=== PATIENT | male | born 1940 | race Hispanic/Latino ===

== ENCOUNTER 2021-09-02 08:47 | Emergency (ER) | payer MEDICARE ==
[~2021-09-02] VITALS: Ht 154.9 cm; Wt 74.8 kg
[2021-09-02 11:00] VITALS: BP 137/63
[2021-09-02] MEDS ORDERED: NORVASC5 M1 PO (11:02)
[2021-09-02] MEDS ORDERED: ARICEPT PO (11:03)
[2021-09-02] MEDS ORDERED: FLUTICASON50 MCG/ACT (11:05)
[2021-09-02] MEDS ORDERED: METFORMIN500 M2 PO (11:06)
[2021-09-02] MEDS ORDERED: CLARITIN10 M1 PO (11:06)
[2021-09-02] MEDS ORDERED: SIMVASTATIN40 MG PO (11:07)
[2021-09-02] MEDS ORDERED: ASPIRIN/ENTERIC81 MG PO (11:08)
== END 2021-09-02 11:08 | disposition home or self-care (01) ==
LOC: ED 08:47
DX: M54.50 Low back pain, unspecified (principal); I10 Essential (primary) hypertension